=== PATIENT | female | born 1995 | race Caucasian/White ===

== ENCOUNTER 2016-06-21 08:27 | Emergency (ER) | payer OTHER | END 2016-06-21 09:11 | disposition home or self-care (01) | LOC: ED 08:27 | DX: J01.90 Acute sinusitis, unspecified (principal); Z91.040 Latex allergy status; Z91.048 Other nonmedicinal substance allergy status ==

== ENCOUNTER 2016-06-23 12:40 | Emergency (ER) | payer OTHER | END 2016-06-23 14:08 | disposition home or self-care (01) | LOC: ED 12:40 | DX: R00.2 Palpitations (principal); T44.995A Adverse effect of other drug primarily affecting the autonomic nervous system, initial encounter; Y92.009 Unspecified place in unspecified non-institutional (private) residence as the place of occurrence of the external cause ==